=== PATIENT | male | born 1960 | race Caucasian/White ===

== ENCOUNTER → 2017-04-19 | Outpatient (CLI) | payer BC ==
[2017-04-19 11:38] LABS: RED BLOOD COUNT 4.73 M/UL (4.20-5.50); WHITE BLOOD COUNT 7.7 K/UL (4.5-11.0)
== END ==
LOC: LAB 10:51
PROVIDERS: Internal Medicine
DX: L50.1 Idiopathic urticaria (principal); L50.8 Other urticaria
CPT/HCPCS: 36415; 83520; 85025; 86003